=== PATIENT | female | born 1990 | race Caucasian/White ===

== ENCOUNTER 2017-03-16 13:44 | Emergency (ER) | payer OTHER ==
[2017-03-16 13:52] VITALS: BP 121/69; PULSE 92; RESP 16; TEMP 98.2
[2017-03-16] MEDS ORDERED: AMOXICILLIN 500MG STARTER PACK 3 CAP BTL PO STA (13:57)
--- NOTE | 2017-03-16 14:01 | ED ---
ENT HPI - General Chief complaint: ENT Stated complaint: Sore Throat Time Seen by Provider: 03/16/17 13:51 Source: patient, RN notes reviewed, old records reviewed Mode of arrival: ambulatory Limitations: no limitations - History of Present Illness Initial comments: 27-year-old female presents emergency Department 2 days of sore throat. She reports shows that her throat and noticed that there was some red and swelling of both of her tonsils as well as white exudate over both tonsils. She also reports that she has foul breath. Denies any known fever or chills. Denies any history of mono. Patient states that she had strep throat last year and this felt very similar. Patient states that she's had no cough, denies any nasal drainage or sinus pressure. Patient states that she is up-to-date on all childhood vaccines. Patient denies any recent fever, chills, shortness of breath, chest pain, back pain, abdominal pain, nausea vomiting, numbness or tingling, dysuria or hematuria, constipation or diarrhea, headaches or visual changes, or any other current symptoms - Related Data Previous Rx's Medication Instructions Recorded Erythromycin Ophth Oint [Romycin 1 applic BOTH EYES QID #1 tube 06/29/15 Ophth Oint] Amoxicillin 500 mg PO Q12HR #20 cap 03/16/17 Allergies Allergy/AdvReac Type Severity Reaction Status Date / Time latex Allergy Unknown Verified 06/29/15 15:41 Review of Systems ROS Statement: Those systems with pertinent positive or pertinent negative responses have been documented in the HPI. ROS Other: All systems not noted in ROS Statement are negative. Past Medical History Past Medical History: No Reported History History of Any Multi-Drug Resistant Organisms: None Reported Past Surgical History: No Surgical Hx Reported Past Psychological History: No Psychological Hx Reported Smoking Status: Former smoker Past Alcohol Use History: Occasional Past Drug Use History: None Reported, Marijuana General Exam - General Exam Comments Initial Comments: well-appearing 27-year-old F[employer]. No acute distress. General: Well appearing, well nourished, in no distress. Oriented x 3, normal mood and affect . Ambulating without difficulty. Skin: Good turgor, no rash, unusual bruising or prominent lesions Hair: Normal texture and distribution. HEENT: Head: Normocephalic, atraumatic, no visible or palpable masses, depressions, or scaring. Eyes: Visual acuity intact, conjunctiva clear, sclera non-icteric, EOM intact, PERRL. Ears: EACs clear, TMs translucent & cone of light visualized. hearing intact. Nose: No external lesions, mucosa non-inflamed, septum and turbinates normal Mouth:patient is swollen bilateral erythematous tonsils. Abdomen to wait and sheets over both tonsils. Teeth/Gums: No obvious caries or periodontal disease. No gingival inflammation or significant resorption. Pharynx: Mucosa non-inflamed, no tonsillar hypertrophy or exudate Neck: Supple, without lesions,patient is tender anterior cervical lymphadenopathy. Heart: No cardiomegaly or thrills; regular rate and rhythm, no murmur or gallop Lungs: Clear to auscultation and percussion Abdomen: Bowel sounds normal, no tenderness, organomegaly, masses, or hernia Back: Spine normal without deformity or tenderness, no CVA tenderness Musculoskeletal: Normal gait and station. No misalignment, asymmetry, crepitation, defects, tenderness, masses, effusions, decreased range of motion, instability, atrophy or abnormal strength or tone in the head, neck, spine, ribs , pelvis or extremities. Limitations: no limitations Course Vital Signs 03/16/17 13:50 Temperature 98.2 F Pulse Rate 92 Respiratory 16 Rate Blood Pressure 121/69 O2 Sat by Pulse 98 Oximetry Medical Decision Making - Medical Decision Making 37-year-old female presents emergency room chief complaint of sore throat for the past 2 days. Patient reports amended swollen and very painful to swallow. Patient does have erythematous bilateral tonsils with white exudates. No evidence of peritonsillar abscess. Patient was given amoxicillin starter pack in the emergency department. Patient also will be discharged with prescription for Maxalt. Discussed write her for today and tomorrow off of work. She is to rest remain hydrated. Although I do not to instruct us patient's physical exam findings and" strep breath, negative. Patient does have Streptococcus pharyngitis. Patient agrees to treatment plan, return parameters were discussed such as difficulty breathing or concerns for peritonsillar abscess. Disposition Clinical Impression: Strep pharyngitis Disposition: HOME SELF-CARE Condition: Good Instructions: Strep Throat (ED) Additional Instructions: Patient advised any Motrin Tylenol for fevers and pain. Use throat lozenges. Patient should have a lot of cold fluids. Complete antibiotic prescription. Return to emergency department if any alarming signs occur. Prescriptions: Amoxicillin 500 mg PO Q12HR #20 cap Referrals: None,Stated [Primary Care Provider] - 1-2 days Paula Scales MD [STAFF PHYSICIAN] - 1-2 days Time of Disposition: 13:59
== END 2017-03-16 14:24 | disposition home or self-care (01) ==
LOC: EC 13:44
DX: J02.0 Streptococcal pharyngitis (principal); Z87.891 Personal history of nicotine dependence; Z91.040 Latex allergy status
CPT/HCPCS: 99283

== ENCOUNTER → 2018-10-16 | Outpatient (CLI) | payer OTHER ==
[2018-10-16 11:20] LABS: Glucose 3 Hour, Gest 60 mg/dL
== END | disposition home or self-care (01) ==
LOC: LABWHC1 07:02
PROVIDERS: ATTEND Obstetrics & Gynecology
DX: O24.419 Gestational diabetes mellitus in pregnancy, unspecified control (principal); Z3A.00 Weeks of gestation of pregnancy not specified
CPT/HCPCS: 36415; 82951; 82952

== ENCOUNTER 2018-12-30 06:00 | Inpatient (IN) | payer OTHER ==
[2018-12-30] MEDS ORDERED: CARBOPROST TROMETHAMINE 250 MCG/ML 1 ML AMP IM PRN (06:22)
[2018-12-30] MEDS ORDERED: OXYTOCIN 10 UNIT/ML 1 ML VIAL IM PRN (06:22)
[2018-12-30] MEDS ORDERED: METHYLERGONOVINE 0.2 MG/ML 1 ML AMP IM PRN (06:22)
[2018-12-30] MEDS ORDERED: LIDOCAINE 0.5% (PF) 5 MG/ML (50 ML SDV) SQ PRN (06:22)
[2018-12-30] MEDS ORDERED: TERBUTALINE 1 MG/ML VIAL SQ PRN (06:22)
[2018-12-30] MEDS ORDERED: AMPICILLIN 2,000 MG in SODIUM CHLORIDE 0.9% 100 ML IVPB STA (06:22)
[2018-12-30] MEDS ORDERED: OXYTOCIN 30 UNITS/500 ML NS 30 UNIT in SALINE 1 500ML.BAG IV SCH (06:30)
[2018-12-30 06:34] LABS: Basophils % (A) 0 %; Eosinophils # (A) 0.1 k/uL (0-0.7); Eosinophils % (A) 1 %; HCT 34.7 % (34.0-46.0); HGB 11.8 gm/dL (11.4-16.0); Lymphocytes # (A) 1.8 k/uL (1.0-4.8); Lymphocytes % (A) 20 %; MCH 28.6 pg (25.0-35.0); MCHC 33.9 g/dL (31.0-37.0); MCV 84.2 fL (80.0-100.0); Mean Platelet Volume 8.2; Monocytes # (A) 0.4 k/uL (0-1.0); Monocytes % (A) 5 %; Neutrophils # (A) 6.4 k/uL (1.3-7.7); Neutrophils % (A) 72 %; Platelet Count 230 k/uL (150-450); RBC 4.12 m/uL (3.80-5.40)
[2018-12-30] MEDS: LACTATED RINGERS 1,000 ML IV SCH ×2 (06:35→17:40)
[2018-12-30 07:58] VITALS: BMI 36.9
[2018-12-30] MEDS ORDERED: SODIUM CHLORIDE 0.9% 100 ML BAG ONE (10:11)
[2018-12-30] MEDS ORDERED: fentaNYL (PF) 50 MCG/ML 5 ML AMP ONE (10:11)
[2018-12-30] MEDS ORDERED: ROPIVACAINE 5MG/ML 20ML VIAL ONE (10:11)
[2018-12-30] MEDS ORDERED: AMPICILLIN 1,000 MG in SODIUM CHLORIDE 0.9% 50 ML IVPB SCH (10:24)
[2018-12-30] MEDS ORDERED: diphenhydrAMINE 50 MG CAP PO PRN (16:39)
[2018-12-30] MEDS ORDERED: WITCH HAZEL 1 EACH MED..PAD TOPICAL PRN (16:39)
[2018-12-30] MEDS ORDERED: HYDROCORTISONE 2.5% RECTAL CREAM 30 GM TUBE RECTAL PRN (16:39)
[2018-12-30] MEDS ORDERED: ZOLPIDEM 5 MG TAB PO PRN (16:39)
[2018-12-30] MEDS ORDERED: diphenhydrAMINE 50 MG/ML 1 ML VIAL IVP PRN ×2 (16:39)
[2018-12-30] MEDS ORDERED: SIMETHICONE 80 MG CHEWABLE PO PRN (16:39)
[2018-12-30] MEDS ORDERED: ACETAMINOPHEN TAB 325 MG TAB PO PRN (16:39)
[2018-12-30] MEDS ORDERED: diphenhydrAMINE 25 MG CAP PO PRN (16:39)
[2018-12-30] MEDS ORDERED: BENZOCAINE/MENTHOL SPRAY 1 GM/SPRAY AEROSOL TOPICAL PRN (16:39)
[2018-12-30] MEDS ORDERED: LANOLIN CREAM 5 GM TUBE TOPICAL PRN (16:39)
[2018-12-30] MEDS ORDERED: SENNOSIDES-DOCUSATE SODIUM 1 EACH TAB PO SCH (20:00)
[2018-12-30] MEDS: IBUPROFEN 600 MG TAB PO PRN (21:44)
[2018-12-30 21:58] VITALS: RESP 16
[2018-12-31 00:53] VITALS: PULSE 93
[2018-12-31] MEDS: IBUPROFEN 600 MG TAB PO PRN (04:40)
--- NOTE | 2018-12-31 09:10 | P.HPOB ---
History of Present Illness H&P Date: 12/30/18 Chief Complaint: Induction of labor 28-year-old presents at 39 weeks and 5 days for induction of labor. Her cervix is 3-4 centers dilated, 80% effaced, -2 station. She is henri irregularly. heart tones 130s with moderate variability and accelerations. Review of Systems All systems: negative Constitutional: Denies chills, Denies fever Eyes: denies blurred vision, denies pain Ears, nose, mouth and throat: Denies headache, Denies sore throat Cardiovascular: Denies chest pain, Denies shortness of breath Respiratory: Denies cough Gastrointestinal: Denies abdominal pain, Denies diarrhea, Denies nausea, Denies vomiting Genitourinary: Denies dysuria, Denies hematuria Musculoskeletal: Denies myalgias Integumentary: Denies pruritus, Denies rash Neurological: Denies numbness, Denies weakness Psychiatric: Denies anxiety, Denies depression Endocrine: Denies fatigue, Denies weight change Past Medical History Past Medical History: No Reported History Additional Past Medical History / Comment(s): Obstetrics history: First was a vaginal delivery this is her second and she's had care with me since the first trimester. Blood type is A+, antibodies negative, rubella immune, placed B-, GBS positive. History of Any Multi-Drug Resistant Organisms: None Reported Past Surgical History: No Surgical Hx Reported Past Psychological History: No Psychological Hx Reported Smoking Status: Former smoker Past Alcohol Use History: Occasional Past Drug Use History: None Reported, Marijuana Medications and Allergies Home Medications Medication Instructions Recorded Confirmed Type Pnv No.95/Ferrous Fum/Folic AC 1 tab PO DAILY 12/30/18 12/30/18 History [ Multivitamin Tablet] Allergies Allergy/AdvReac Type Severity Reaction Status Date / Time latex Allergy Unknown Verified 12/30/18 06:19 Exam Osteopathic Statement: *. No significant issues noted on an osteopathic structural exam other than those noted in the History and Physical/Consult. Vital Signs Temp Pulse Resp BP Pulse Ox 12/31/18 00:00 98.3 F 93 16 112/68 12/30/18 20:00 98.7 F 95 16 107/66 12/30/18 15:15 97 15 115/69 12/30/18 14:45 95 17 124/73 12/30/18 14:15 97 16 122/73 12/30/18 14:00 96.9 F L 107 H 17 122/83 98 12/30/18 13:45 98.2 F 85 18 124/58 Intake and Output 12/30/18 12/31/18 12/31/18 22:59 06:59 14:59 Other: # Voids 1 1 Heart: Regular rate and rhythm Lungs: Clear to auscultation bilaterally Abdomen: Soft, nontender Extremities: Negative Homans sign Results Result Diagrams: 12/30/18 06:22 Assessment and Plan (1) Normal labor Current Visit: Yes Status: Acute Code(s): O80 - ENCOUNTER FOR FULL-TERM UNCOMPLICATED DELIVERY; Z37.9 - OUTCOME OF DELIVERY, UNSPECIFIED SNOMED Code(s): 96858473 Plan: 1. Induction of labor with amniotomy and Pitocin 2. Anticipate normal vaginal delivery
--- NOTE | 2018-12-31 09:13 | P.PROBDLV ---
Vaginal Delivery Note - . Vaginal Delivery Note: 28-year-old presents at 39 weeks and 5 days for induction of labor. Her cervix is 3-4 centers dilated, 80% effaced, -2 station. She is henri irregularly. heart tones 130s with moderate variability and accelerations. Pitocin was started after the antibiotics for in. Amniotomy was performed at 8:12 AM and clear fluid noted. When she was uncomfortable she did get an epidural. Her cervix was completely dilated at 1315. She pushed, and delivered a viable female over intact perineum under epidural anesthesia at 1320. Head delivered OA, anterior shoulder which was the left shoulder delivered gentle downward guidance bulb posterior shoulder and rest of body. Nose and mouth bulb suctioned, cord clamped and cut, infant placed mother's abdomen. Apgars 9, 9, weight 8 lbs. 13 oz. Placenta delivered spontaneously, intact with three-vessel cord at 1322. Vagina, cervix, and perineum were inspected. First-degree midline laceration was repaired with 3-0 Vicryl. Estimated blood loss 200 mL. Mother and baby in stable condition.
[2018-12-31 09:15] VITALS: BP 131/82; TEMP 98.2
--- NOTE | 2018-12-31 09:17 | P.DS ---
Providers Date of admission: 12/30/18 06:01 Expected date of discharge: 12/31/18 Attending physician: Nikki Snell Primary care physician: Stated None - Discharge Diagnosis(es) (1) Normal labor Current Visit: Yes Status: Resolved (2) Normal vaginal delivery Current Visit: Yes Status: Acute Hospital Course: Patient presented for induction of labor. She underwent a normal vaginal delivery. Her course was uncomplicated. She'll be discharged home day #1 in stable condition follow-up with me in 6 weeks. Plan - Discharge Summary New Discharge Prescriptions: New Ibuprofen [Motrin] 600 mg PO Q6HR PRN #30 tab PRN Reason: Mild Pain Or Fever >= 100.5 No Action Pnv No.95/Ferrous Fum/Folic AC [ Multivitamin Tablet] 1 tab PO DAILY Discharge Medication List Pnv No.95/Ferrous Fum/Folic AC [ Multivitamin Tablet] 1 tab PO DAILY 12/30/18 [History] Ibuprofen [Motrin] 600 mg PO Q6HR PRN #30 tab 12/31/18 [Rx] Follow up Appointment(s)/Referral(s): Nikki Snell DO [Doctor of Osteopathic Medicine] - 6 Weeks Discharge Disposition: HOME SELF-CARE
== END 2018-12-31 13:50 | disposition home or self-care (01) | DRG 807 ==
LOC: 4FBP 06:01
PROVIDERS: ADMIT Obstetrics & Gynecology; ATTEND Obstetrics & Gynecology
PROC: 10E0XZZ Delivery of Products of Conception, External Approach (ICD-10-PCS; principal; 2018-12-30)
PROC: 0HQ9XZZ Repair Perineum Skin, External Approach (ICD-10-PCS; 2018-12-30)
PROC: 3E033VJ Introduction of Other Hormone into Peripheral Vein, Percutaneous Approach (ICD-10-PCS; 2018-12-30)
PROC: 10907ZC Drainage of Amniotic Fluid, Therapeutic from Products of Conception, Via Natural or Artificial Opening (ICD-10-PCS; 2018-12-30)
PROC: 00HU33Z Insertion of Infusion Device into Spinal Canal, Percutaneous Approach (ICD-10-PCS; 2018-12-30)
PROC: 3E0R3BZ Introduction of Anesthetic Agent into Spinal Canal, Percutaneous Approach (ICD-10-PCS; 2018-12-30)
DX: O70.0 First degree perineal laceration during delivery (principal); Z37.0 Single live birth; O99.824 Streptococcus B carrier state complicating childbirth; Z3A.39 39 weeks gestation of pregnancy; Z79.899 Other long term (current) drug therapy; Z87.891 Personal history of nicotine dependence
CPT/HCPCS: 85025; 86850; 86900; 86901

== ENCOUNTER 2021-05-31 14:24 | Emergency (ER) | payer OTHER ==
[2021-05-31 14:51] VITALS: BP 141/85; PULSE 96; RESP 20; TEMP 98.8
[2021-05-31] MEDS ORDERED: DEXAMETHASONE SOD PHOSPHATE 10 MG/ML 1 ML VIAL IM STA (15:28)
--- NOTE | 2021-05-31 16:24 | ED ---
ENT HPI - General Chief complaint: ENT Stated complaint: Sore Throat Source: patient, RN notes reviewed Mode of arrival: ambulatory Limitations: no limitations - History of Present Illness Initial comments: Patient is a 31-year-old female that presents to the emergency department complaining of a sore throat and swollen lymph nodes. She notes that she also has bilateral earache. She notes she does have a history of tonsillitis. Patient was otherwise well-appearing in no apparent distress. She no she can emergency room to get tested for strep throat and Covid just to be safe. She denied any chest pain shortness of breath headache nausea vomiting diarrhea constipation fever fatigue chills. - Related Data Home Medications Medication Instructions Recorded Confirmed Pnv No.95/Ferrous Fum/Folic AC 1 tab PO DAILY 12/30/18 12/30/18 [ Multivitamin Tablet] Previous Rx's Medication Instructions Recorded Ibuprofen [Motrin] 600 mg PO Q6HR PRN #30 tab 12/31/18 Azithromycin [Zithromax] 500 mg PO DAILY #5 tab 05/31/21 Allergies Allergy/AdvReac Type Severity Reaction Status Date / Time latex Allergy Unknown Verified 05/31/21 14:47 Review of Systems ROS Statement: Those systems with pertinent positive or pertinent negative responses have been documented in the HPI. ROS Other: All systems not noted in ROS Statement are negative. Past Medical History Past Medical History: No Reported History Additional Past Medical History / Comment(s): Obstetrics history: First was a vaginal delivery this is her second and she's had care with me since the first trimester. Blood type is A+, antibodies negative, rubella immune, placed B-, GBS positive. History of Any Multi-Drug Resistant Organisms: None Reported Past Surgical History: No Surgical Hx Reported Past Psychological History: No Psychological Hx Reported Smoking Status: Current every day smoker Past Alcohol Use History: Occasional Past Drug Use History: None Reported, Marijuana General Exam Limitations: no limitations General appearance: alert, in no apparent distress Head exam: Present: atraumatic, normocephalic, normal inspection Eye exam: Present: normal appearance, PERRL, EOMI. Absent: scleral icterus, conjunctival injection, periorbital swelling ENT exam: Present: normal exam, mucous membranes moist, other (Minimal white exudate left tonsil.) Neck exam: Present: normal inspection. Absent: tenderness, meningismus, lymphadenopathy Respiratory exam: Present: normal lung sounds bilaterally. Absent: respiratory distress, wheezes, rales, rhonchi, stridor Extremities exam: Present: normal inspection, full ROM, normal capillary refill. Absent: tenderness, pedal edema, joint swelling, calf tenderness Neurological exam: Present: alert, oriented X3 Psychiatric exam: Present: normal affect, normal mood Skin exam: Present: warm, dry, intact, normal color. Absent: rash Course Vital Signs 05/31/21 14:48 Temperature 98.8 F Pulse Rate 96 Respiratory 20 Rate Blood Pressure 141/85 O2 Sat by Pulse 99 Oximetry Medical Decision Making - Medical Decision Making 11-year-old female complaining of sore throat and bilateral ear pain and a history of tonsillitis. Strep test and Covid test ordered. Strep and Covid test both negative. 10 mg of Decadron ordered. A she will be given antibiotics sent to pharmacy. Patient is agreeable with discharge home with follow-up to primary care. Case discussed with Dr. Mckeon - Lab Data Lab Results 05/31/21 05/31/21 Range/Units 15:27 15:27 Coronavirus (PCR) Not Detected (Not Detectd) Group A Strep Rapid Negative (Negative) Disposition Clinical Impression: Tonsillitis Disposition: HOME SELF-CARE Condition: Stable Instructions (If sedation given, give patient instructions): Tonsillitis (ED) Additional Instructions: Please return to the Emergency Department if symptoms worsen or any other concerns. Follow-up with primary care in 1-2 days. Take antibiotics as prescribed until complete. Is patient prescribed a controlled substance at d/c from ED?: No Referrals: None,Stated [Primary Care Provider] - 1-2 days Time of Disposition: 16:23
== END 2021-05-31 16:47 | disposition home or self-care (01) ==
LOC: EC 14:24
DX: J03.90 Acute tonsillitis, unspecified (principal); Z20.822 Contact with and (suspected) exposure to COVID-19; F17.200 Nicotine dependence, unspecified, uncomplicated; F12.90 Cannabis use, unspecified, uncomplicated; Z79.1 Long term (current) use of non-steroidal anti-inflammatories (NSAID)
CPT/HCPCS: 87081; 87430; 87635; 99283; 96372; J1100

== ENCOUNTER 2023-06-02 08:49 | Emergency (ER) | payer OTHER ==
[2023-06-02 09:18] VITALS: RESP 18; TEMP 98
--- NOTE | 2023-06-02 11:11 | ED ---
Skin/Abscess/FB HPI - General Chief complaint: Skin/Abscess/Foreign Body Stated complaint: Rash Time Seen by Provider: 06/02/23 09:00 Source: patient, RN notes reviewed Mode of arrival: ambulatory Limitations: no limitations - History of Present Illness Initial comments: This is a 33-year-old female who presents to the emergency department for a rash. States that this has been present for at least a month at this point. Describes this as a burning sensation as opposed to itching. The rash is on her arms, legs, hands, chest, and trunk. She went to [facility] about a month ago when this first began. They tested her for strep, which was negative, and started her on steroids. States that she had no improvement with steroids whatsoever. She's also been trying to take [id number] histamines, which have also not been helpful. States that she is also not using anything scented or potentially irritating. Denies any history of similar symptoms in the past. She inquired as to if this may be related to her thyroid, as she feels like her thyroid is large. MD complaint: rash - Related Data Home Medications Medication Instructions Recorded Confirmed Pnv No.95/Ferrous Fum/Folic AC 1 tab PO DAILY 12/30/18 12/30/18 [ Multivitamin Tablet] Previous Rx's Medication Instructions Recorded Ibuprofen [Motrin] 600 mg PO Q6HR PRN #30 tab 12/31/18 Azithromycin [Zithromax] 500 mg PO DAILY #5 tab 05/31/21 Allergies Allergy/AdvReac Type Severity Reaction Status Date / Time latex Allergy Unknown Verified 06/02/23 08:57 Review of Systems ROS Statement: Those systems with pertinent positive or pertinent negative responses have been documented in the HPI. ROS Other: All systems not noted in ROS Statement are negative. Past Medical History Past Medical History: No Reported History Additional Past Medical History / Comment(s): Obstetrics history: First pr egnancy was a vaginal delivery this is her second and she's had care with me since the first trimester. Blood type is A+, antibodies negative, rubella immune, placed B-, GBS positive. History of Any Multi-Drug Resistant Organisms: None Reported Past Surgical History: No Surgical Hx Reported Past Psychological History: No Psychological Hx Reported Smoking Status: Vaper Past Alcohol Use History: Occasional Past Drug Use History: None Reported, Marijuana General Exam Limitations: no limitations General appearance: alert, in no apparent distress Head exam: Present: atraumatic, normocephalic, normal inspection Respiratory exam: Present: normal lung sounds bilaterally. Absent: respiratory distress, wheezes, rales, rhonchi, stridor Cardiovascular Exam: Present: regular rate, normal rhythm, normal heart sounds. Absent: systolic murmur, diastolic murmur, rubs, gallop, clicks Neurological exam: Present: alert, oriented X3, CN II-XII intact Psychiatric exam: Present: normal affect, normal mood Skin exam: Present: other (Maculopapular rash to the bilateral upper and lower extremities involving the palms. This is scattered on the trunk as well.) Course Vital Signs 06/02/23 06/02/23 08:54 13:08 Temperature 98 F Pulse Rate 97 82 Respiratory 18 18 Rate Blood Pressure 132/78 126/74 O2 Sat by Pulse 98 99 Oximetry Medical Decision Making - Medical Decision Making This is a 33-year-old female who presents to the emergency department for a rash. Was pt. sent in by a medical professional or institution? @ -No Did you speak to anyone other than the patient for history? @ -No Did you review nursing and triage notes? @ -Yes, and I agree, it is accurate with regards to the patient's symptoms. Were old charts reviewed? @ -No Differential Diagnosis? @ -Differential Rash: Roseola, measles, Lyme disease, erythema multiforme, cellulitis, toxic shock syndrome, Eliceo Michele syndrome, Kawasaki disease, daryl mountain spotted fever, contact dermatitis, allergic dermatitis, measles, mumps, rubella, varicella, meningococcal disease, drug reaction, coxsackievirus, This is not meant to be an all-inclusive list. EKG interpreted by me (3pts min.)? @ -Not obtained X-rays interpreted by me (1pt min.)? @ -Not obtained CT interpreted by me (1pt min.)? @ -Not obtained U/S interpreted by me (1pt. min.)? @ -Not obtained What testing was considered but not performed? (CT, X-rays, U/S, labs)? Why? @ -None What meds were considered but not given? Why? @ -None Did you discuss the management of the patient with other professionals? @ -Case management, who contacted multiple dermatology offices, and was able to schedule the patient for tomorrow in [place], [place]. This was the only office that would accept her insurance. Did you reconcile home meds? @ -No Was smoking cessation discussed for >3mins.? @ -No Was critical care preformed (if so, how long)? @ -No Were there social determinants of health that impacted care today? How? (Homelessness, low income, unemployed, alcoholism, drug addiction, transportation, low edu. Level, literacy, decrease access to med. care, care home, rehab)? @ -No Was there de-escalation of care discussed even if they declined? (Discuss DNR or withdrawal of care, Hospice)? @ -No What co-morbidities impacted this encounter? (DM, HTN, Smoking, COPD, CAD, Cancer, CVA, Hep., AIDS, mental health diagnosis, sleep apnea, morbid obesity)? @ -None Was patient admitted / discharged? @ -Discharged. The underlying cause of the patient's rash is not entirely clear. It did appear to be more of a dermatitis or inflammatory process, howev er she has had no improvement with steroids at this point. The presentation is not consistent with a fungal or bacterial infection. Patient requested lab work, and this was obtained revealing no acute process, including negative heterophile, thyroid, and inflammatory markers. Case management made several phone calls to local dermatology offices, and she was able to get the patient an appointment tomorrow in [place], [place]. Advised that this is the closest office that will accept her insurance. Patient expresses understanding and is willing to follow up tomorrow as scheduled. Undiagnosed new problem with uncertain prognosis? @ -None Drug Therapy requiring intensive monitoring for toxicity (Heparin, Nitro, Insulin, Cardizem)? @ -None Were any procedures done? @ -None Diagnosis/symptom? @ -Rash Acute, or Chronic, or Acute on Chronic? @ -Acute Uncomplicated (without systemic symptoms) or Complicated (systemic symptoms)? @ -Uncomplicated Side effects of treatment? @ -None Exacerbation, Progression, or Severe Exacerbation] @ -Not applicable Poses a threat to life or bodily function? @ -No Return precautions reviewed in depth, the patient is instructed to return to the emergency department with any new, worsening, or concerning symptoms. Patient verbalized understanding. This case was discussed in detail with the attending ED physician, Dr. Viveros. Presentation, findings, and treatment plan discussed in detail as well. - Lab Data Result diagrams: 06/02/23 11:06/02/23 11: Lab Results 06/02/23 06/02/23 06/02/23 Range/Units 11:23 11:23 11:23 WBC 10.5 (3.8-10.6) k/uL RBC 4.86 (3.80-5.40) m/uL Hgb 13.5 (11.4-16.0) gm/dL Hct 41.0 (34.0-46.0) % MCV 84.4 (80.0-100.0) fL MCH 27.9 (25.0-35.0) pg MCHC 33.0 (31.0-37.0) g/dL RDW 13.2 (11.5-15.5) % Plt Count 318 (150-450) k/uL MPV 7.5 Neutrophils % 66 % Lymphocytes % 26 % Monocytes % 4 % Eosinophils % 3 % Basophils % 0 % Neutrophils # 6.9 (1.3-7.7) k/uL Lymphocytes # 2.7 (1.0-4.8) k/uL Monocytes # 0.4 (0-1.0) k/uL Eosinophils # 0.3 (0-0.7) k/uL Basophils # 0.1 (0-0.2) k/uL Sodium 141 (137-145) mmol/L Potassium 3.7 (3.5-5.1) mmol/L Chloride 105 (98-107) mmol/L Carbon Dioxide 25 (22-30) mmol/L Anion Gap 11 mmol/L BUN 13 (7-17) mg/dL Creatinine 0.69 (0.52-1.04) mg/dL Est GFR (CKD-EPI)AfAm >90 (>60 ml/min/1.73 sqM) Est GFR (CKD-EPI)NonAf >90 (>60 ml/min/1.73 sqM) Glucose 94 (74-99) mg/dL Calcium 9.3 (8.4-10.2) mg/dL Total Bilirubin 0.4 (0.2-1.3) mg/dL AST 23 (14-36) U/L ALT 20 (4-34) U/L Alkaline Phosphatase 37 L (38-126) U/L C-Reactive Protein 0.6 (<1.0) mg/dL Total Protein 7.2 (6.3-8.2) g/dL Albumin 4.1 (3.5-5.0) g/dL TSH 1.300 (0.465-4.680) mIU/L HCG, Qual Not Detected Heterophile Antibody Negative (Negative) Disposition Clinical Impression: Rash Disposition: HOME SELF-CARE Instructions (If sedation given, give patient instructions): Acute Rash (ED) Additional Instructions: [facility] was closest location that accepted your insurance. They are located at [address] [place] [address] [address] [place] [id number]. They can be reached at [phone]. Your appointment is Friday06-03-23 at 1030 with TANVIR Sellers. Please arrive 15min early to complete paperwork and bring insurance card and ID. Is patient prescribed a controlled substance at d/c from ED?: No Referrals: None,Stated [Primary Care Provider] - 1-2 days Forms: Area [facility]
[2023-06-02 11:33] LABS: Basophils # (A) 0.1 k/uL (0-0.2); Basophils % (A) 0 %; Eosinophils # (A) 0.3 k/uL (0-0.7); Eosinophils % (A) 3 %; HGB 13.5 gm/dL (11.4-16.0); Lymphocytes # (A) 2.7 k/uL (1.0-4.8); Lymphocytes % (A) 26 %; MCH 27.9 pg (25.0-35.0); MCV 84.4 fL (80.0-100.0); Mean Platelet Volume 7.5; Monocytes # (A) 0.4 k/uL (0-1.0); Monocytes % (A) 4 %; Neutrophils # (A) 6.9 k/uL (1.3-7.7); Neutrophils % (A) 66 %; Platelet Count 318 k/uL (150-450); RBC 4.86 m/uL (3.80-5.40); RDW 13.2 % (11.5-15.5); WBC 10.5 k/uL (3.8-10.6)
[2023-06-02 11:53] LABS: HCG,Qualitative Serum Not Detected
[2023-06-02 12:13] LABS: ALT 20 U/L (4-34); AST 23 U/L (14-36); African American GFR (CKD) >90 (>60 ml/min/1.73 sqM); Albumin 4.1 g/dL (3.5-5.0); Alkaline Phosphatase 37 U/L (38-126); Anion Gap 11 mmol/L; Blood Urea Nitrogen 13 mg/dL (7-17); C Reactive Protein 0.6 mg/dL (<1.0); Calcium 9.3 mg/dL (8.4-10.2); Carbon Dioxide 25 mmol/L (22-30); Chloride 105 mmol/L (98-107); Glucose 94 mg/dL (74-99); Non-African American GFR(CKD) >90 (>60 ml/min/1.73 sqM); Potassium 3.7 mmol/L (3.5-5.1); Sodium 141 mmol/L (137-145); Total Bilirubin 0.4 mg/dL (0.2-1.3); Total Protein 7.2 g/dL (6.3-8.2)
[2023-06-02 13:30] VITALS: BP 126/74; PULSE 82
== END 2023-06-02 13:09 | disposition home or self-care (01) ==
LOC: EC 08:49
DX: R21 Rash and other nonspecific skin eruption (principal); F17.290 Nicotine dependence, other tobacco product, uncomplicated
CPT/HCPCS: 36415; 80053; 84443; 84703; 85025; 86140; 86308; 99283